=== PATIENT | male | born 1985 | race Caucasian/White ===

== ENCOUNTER 2021-08-25 13:32 | Emergency (ER) | payer OTHER ==
[2021-08-25] MEDS ORDERED: ACETAMINOPHEN 325 MG TABLET (FP) PO ONE ×2 (13:54→14:00)
[2021-08-25 14:05] VITALS: BP 169/103; PULSE 60; TEMP 97.8; BMI 26.6
[2021-08-25] MEDS ORDERED: ACETAMINOPHEN 325 MG TABLET (FP) ONE (14:07)
== END 2021-08-25 15:16 | disposition home or self-care (01) ==
LOC: FER 13:32
DX: M79.671 Pain in right foot (principal)
CPT/HCPCS: 73630-TC-RT-FY; 99284-25